=== PATIENT | male | born 1950 | race Caucasian/White ===

== ENCOUNTER 2018-07-08 14:04 | Inpatient (IN) | payer OTHER ==
[~2018-07-08] VITALS: Ht 172.7 cm; Wt 54.4 kg
[~2018-07-08 14:04] MED LIST: ASPIR 8181 MG PO; CLONAZEPAM0.5 MG PO; ENALAPRIL MALEA10 MG PO; SYNTHROID75 MCG PO
== END 2018-07-12 19:01 | disposition home or self-care (01) | DRG 330 ==
LOC: SURH 07-10 10:29 → O/R 07-10 10:29 → SURH 07-10 15:47 → O/R 07-10 20:06 → SURH 07-10 21:45
PROVIDERS: Colon & Rectal Surgery
PROC: 0DTP4ZZ Resection of Rectum, Percutaneous Endoscopic Approach (ICD-10-PCS; 2018-07-10)
PROC: 07TC4ZZ Resection of Pelvis Lymphatic, Percutaneous Endoscopic Approach (ICD-10-PCS; 2018-07-10)
PROC: 0DJD8ZZ Inspection of Lower Intestinal Tract, Via Natural or Artificial Opening Endoscopic (ICD-10-PCS; 2018-07-10)
PROC: 0DTN4ZZ Resection of Sigmoid Colon, Percutaneous Endoscopic Approach (ICD-10-PCS; principal; 2018-07-10 16:30)
DX: D12.7 Benign neoplasm of rectosigmoid junction (principal); D62 Acute posthemorrhagic anemia; I10 Essential (primary) hypertension; E03.8 Other specified hypothyroidism; Z86.010 Personal history of colon polyps

== ENCOUNTER 2019-06-27 07:25 | Day surgery (SDC) | payer OTHER | END 2019-06-27 12:15 | disposition home or self-care (01) | LOC: AMB-ENDOS 07:25 | DX: C19 Malignant neoplasm of rectosigmoid junction (principal); D12.7 Benign neoplasm of rectosigmoid junction ==

== ENCOUNTER 2020-07-16 05:10 | Day surgery (SDC) | payer OTHER | END 2020-07-16 11:15 | disposition home or self-care (01) | LOC: AMB-ENDOS 05:10 | PROVIDERS: ATTEND Colon & Rectal Surgery | DX: K62.89 Other specified diseases of anus and rectum (principal) ==